=== PATIENT | male | born 1990 | race African-American/Black ===

== ENCOUNTER 2019-05-15 22:34 | Emergency (ER) | payer OTHER ==
--- NOTE | 2019-05-15 23:03 | ED Physician Documentation ---
History of Present Illness - Stated complaint Stated Complaint: ABD PX - Chief complaint Chief Complaint: Abd Pain - Additonal information Additional information: This is a 29-year-old male who denies past medical history who presents with 3 weeks of intermittent left lower quadrant abdominal discomfort. Patient states the pain has been coming and going, and at times it feels crampy. It radiates slightly towards his midline at times, but he does denies any right lower quadrant abdominal pain. No upper abdominal discomfort. 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 He denies any testicular or penile pain. No pain or burning on urination. No vomiting. He also states that earlier in the evening he had a slight amount of chest discomfort which was central, was not associated with any shortness of breath or cough or fever. It now is gone and he feels asymptomatic. Review of Systems Constitutional: denies: Fever Nose: denies: Rhinorrhea / runny nose Cardiac: denies: Chest pain / pressure Respiratory: denies: Dyspnea GI: reports: Abdominal Pain. denies: Vomiting : denies: Dysuria Skin: denies: Rash Neurologic: denies: Generalized weakness PD PAST MEDICAL HISTORY - Past Medical History Past Medical History: No Cardiovascular: None Respiratory: None Neuro: None Endocrine/Autoimmune: None GI: None : None HEENT: None Psych: None Musculoskeletal: None Derm: None - Past Surgical History Past Surgical History: No - Allergies Allergies/Adverse Reactions: Allergies Allergy/AdvReac Type Severity Reaction Status Date / Time No Known Drug Allergies Allergy Verified 05/15/19 22:40 - Social History Does the pt smoke?: No Smoking Status: Never smoker - Immunizations Immunizations are current?: Yes - POLST Patient has POLST: No PD ED PE NORMAL - Vitals Vital signs reviewed: Yes - General General: Alert and oriented X 3, No acute distress - HEENT HEENT: PERRL - Neck Neck: Supple, no meningeal sign - Cardiac Cardiac: RRR, No murmur - Respiratory Respiratory: Clear bilaterally - Abdomen Abdomen: Normal bowel sounds, Soft, Non distended, Other (Mild left lower quadrant tenderness to deep palpation, abdomen is otherwise nontender. There is no guarding. There is no tenderness with deep ablation of the right lower quadrant of the right upper quadrant. Negative Anderson sign.) - Derm Derm: Warm and dry - Extremities Extremities: No deformity - Neuro Neuro: Alert and oriented X 3 - Psych Psych: Normal mood, Normal affect Results - Vitals Vitals: Vital Signs - 24 hr 05/15/19 05/16/19 05/16/19 22:37 00:30 00:34 Temperature 37 C 36.7 C Heart Rate 90 80 Respiratory 17 16 20 Rate Blood Pressure 159/88 H 134/81 H O2 Saturation 100 98 Oxygen O2 Source Room air - EKG (time done) 23:33 Other comments: Other comments (Rate 83, rhythm sinus, there is no ST segment elevation or depression, no abnormal T wave inversions. There is an RSR prime in V1 and V2. QTc 426.) - Labs Labs: Laboratory Tests 05/15/19 05/15/19 05/16/19 22:50 22:50 00:00 WBC 6.6 RBC 5.15 Hgb 14.5 Hct 43.3 MCV 84.1 MCH 28.2 MCHC 33.5 RDW 12.3 Plt Count 258 MPV 10.8 Neut # (Auto) 3.7 Lymph # (Auto) 2.4 [place] # (Auto) 0.4 Eos # (Auto) 0.1 Baso # (Auto) 0.0 Absolute Nucleated RBC 0.00 Nucleated RBC % 0.0 Sodium 137 Potassium 3.5 Chloride 104 Carbon Dioxide 23 Anion Gap 10.0 BUN 9 Creatinine 0.8 Estimated GFR (MDRD) 140 Glucose 99 Calcium 9.1 Total Bilirubin 0.9 AST 17 ALT 19 Alkaline Phosphatase 61 Total Protein 7.7 Albumin 4.5 Globulin 3.2 Albumin/Globulin Ratio 1.4 Lipase 38 Urine Color YELLOW Urine Clarity CLEAR Urine pH 6.5 Ur Specific [place] 1.015 Urine Protein NEGATIVE Urine Glucose (UA) NEGATIVE Urine Ketones NEGATIVE Urine Occult Blood NEGATIVE Urine Nitrite NEGATIVE Urine Bilirubin NEGATIVE Urine Urobilinogen 1 (NORMAL) Ur Leukocyte Esterase NEGATIVE Ur Microscopic Review NOT INDICATED Urine Culture Comments NOT INDICATED PD MEDICAL DECISION MAKING - ED course Complexity details: considered differential (Diverticulitis, appendicitis, UTI, torsion, nephrolithiasis, biliary obstruction, constipation) ED course: On arrival patient is very well-appearing, vital signs are unremarkable. His abdomen is benign he has a very small amount of tenderness in the left lower quadrant abdomen is otherwise nontender and specifically no tenderness in the right lower quadrant. No testicular pain or signs of torsion. Labs are drawn and are unremarkable. His white blood cell count, red blood cell count, and abdominal panel are all within normal limits. His urine is negative for blood, signs of infection, or nitrates. I repeated abdominal exam and he continues to have a very benign abdomen. I discussed with him options of imaging versus careful observation, he is feeling well and would prefer observation. Given his reassuring labs and abdomen, I think this is very reasonable. Regarding his transient chest discomfort, this sounds very benign and was fleeting, he has no signs of PE, oxygen saturation is excellent, his lungs are c lear to auscultation bilaterally, his symptoms resolved completely, and his EKG is unremarkable, do not see signs of any acute cardiac or pulmonary emergency at this time. I reviewed return precautions with the patient, discussed primary care follow-up, patient was discharged home in very good condition. Departure - Departure Disposition: 01 Home, Self Care Clinical Impression: Abdominal pain Qualifiers: Abdominal location: left lower quadrant Qualified Code(s): R10.32 - Left lower quadrant pain Condition: Good Instructions: ED Abdominal Pain Unkn Cause Comments: Your labs and urine test were very reassuring today, I do not see any signs of an emergency cause of your abdominal pain. Please follow-up with your primary care provider on this discomfort, if you are having increasing pain, pain that shifts to the right lower quadrants, repeated episodes of vomiting, fever, or other concerning symptoms, return to the emergency department. Discharge Date/Time: 05/16/19 00:42
[2019-05-15 23:25] LABS: BASOPHILS % (AUTO) 0.3 %; EOSINOPHILS # (AUTO) 0.1 10^3/uL (0.0-0.7); EOSINOPHILS % (AUTO) 1.4 %; HGB - HEMOGLOBIN 14.5 g/dL (14.0-18.0); LYMPHOCYTES # (AUTO) 2.4 10^3/uL (1.5-3.5); LYMPHOCYTES % (AUTO) 35.8 %; MEAN CORPUSCULAR HEMOGLOBIN 28.2 pg (27.0-31.0); MEAN CORPUSCULAR HGB CONC 33.5 g/dL (32.0-36.0); MEAN CORPUSCULAR VOLUME 84.1 fL (80.0-94.0); MEAN PLATELET VOLUME 10.8 fL (7.4-11.4); MONOCYTES # (AUTO) 0.4 10^3/uL (0.0-1.0); MONOCYTES % (AUTO) 6.2 %; NEUTROPHILS # (AUTO) 3.7 10^3/uL (1.5-6.6); PLT - PLATELET COUNT 258 10^3/uL (130-450); RED BLOOD COUNT 5.15 10^6/uL (4.70-6.10); RED CELL DISTRIBUTION WIDTH 12.3 % (12.0-15.0); WHITE BLOOD COUNT 6.6 x10^3/uL (4.8-10.8)
[2019-05-15 23:35] LABS: ALBUMIN 4.5 g/dL (3.2-5.5); ALBUMIN/GLOBULIN RATIO 1.4 (1.0-2.2); BILIRUBIN,TOTAL 0.9 mg/dL (0.2-1.0); CALCIUM 9.1 mg/dL (8.5-10.3); CREATININE 0.8 mg/dL (0.6-1.2); TOTAL PROTEIN 7.7 g/dL (6.7-8.2)
[2019-05-16 00:06] LABS: BILIRUBIN,URINE NEGATIVE (NEGATIVE); GLUCOSE, URINE (UA) NEGATIVE (NEGATIVE); KETONES,URINE (UA) NEGATIVE (NEGATIVE); LEUKOCYTE ESTERASE, URINE NEGATIVE (NEGATIVE); NITRITE,URINE NEGATIVE (NEGATIVE); OCCULT BLOOD,URINE NEGATIVE (NEGATIVE); PH,URINE 6.5 PH (5.0-7.5); PROTEIN,URINE NEGATIVE (NEGATIVE); UROBILINOGEN,URINE 1 (NORMAL) E.U./dL (NORMAL)
[2019-05-16 00:07] LABS: CLARITY,URINE CLEAR (CLEAR)
[2019-05-16 00:35] VITALS: BP 134/81
== END 2019-05-16 00:42 | disposition home or self-care (01) ==
LOC: ED 22:34
DX: R10.32 Left lower quadrant pain (principal)
CPT/HCPCS: 36415; 80053; 81001; 81003; 83690; 85025; 87086; 93005; 99283; 99284

== ENCOUNTER 2019-08-20 14:25 | Emergency (ER) | payer OTHER ==
--- NOTE | 2019-08-20 15:11 | ED Physician Documentation ---
History of Present Illness - Stated complaint Stated Complaint: CONSTIPATION - Chief complaint Chief Complaint: Abd Pain - History obtained from History obtained from: Patient - History of Present Illness Timing: How many weeks ago (2) - Additonal information Additional information: 29-year-old male presents to the emergency department chief complaint of no bow el movement for 2 weeks. He denies any previous history of constipation. No history of previous abdominal surgery. He denies any opiate use. He has attempted Colace and a few doses of MiraLAX without success. He denies any nausea or vomiting and continues to eat. He occasionally passes gas. Review of Systems Constitutional: denies: Fever, Chills Respiratory: denies: Dyspnea, Cough GI: reports: Constipation. denies: Abdominal Pain, Abdominal Swelling, Nausea, Vomiting, Diarrhea, Hematemesis, Bloody / black stool : denies: Dysuria, Frequency Skin: denies: Rash, Lesions Musculoskeletal: denies: Neck pain, Back pain PD PAST MEDICAL HISTORY - Past Medical History Cardiovascular: None Respiratory: None Neuro: None Endocrine/Autoimmune: None GI: None : None HEENT: None Psych: None Musculoskeletal: None Derm: None - Past Surgical History Past Surgical History: No - Present Medications Home Medications: Ambulatory Orders Medication Instructions Recorded Confirmed Polyethylene Glycol 3350 [Miralax] 17 gm PO BID #1 bottle 08/20/19 - Allergies Allergies/Adverse Reactions: Allergies Allergy/AdvReac Type Severity Reaction Status Date / Time No Known Drug Allergies Allergy Verified 08/20/19 14:32 - Social History Does the pt smoke?: No Smoking Status: Never smoker - Immunizations Immunizations are current?: Yes - POLST Patient has POLST: No PD ED PE NORMAL - General General: Alert and oriented X 3, No acute distress, Well developed/nourished - Cardiac Cardiac: RRR, No murmur - Respiratory Respiratory: No respiratory distress - Abdomen Abdomen: Normal bowel sounds, Soft, Non tender - Rectal Rectal: Other (thrombosed external hemorrhoid) - Back Back: No CVA TTP - Extremities Extremities: No deformity, No tenderness to palpate - Neuro Neuro: Alert and oriented X 3, chemist physical 2-12 intact, No motor deficit, No sensory deficit Results - Vitals Vitals: Vital Signs - 24 hr 08/20/19 08/20/19 14:32 16:35 Temperature 36.5 C Heart Rate 80 69 Respiratory 16 18 Rate Blood Pressure 175/89 H 144/79 H O2 Saturation 99 100 Oxygen O2 Source Room air - Rads (name of study) abd xray Radiology: Final report received (Moderate fecal load in the a sending and descending) PD MEDICAL DECISION MAKING - ED course Complexity details: re-evaluated patient, d/w patient ED course: 29-year-old male presents to the emergency department with 2 weeks of constipation. He reports no bowel movement for 2 weeks. - Flat plate abdominal x-ray reveals moderate colonic stool loading in the a sending and descending colon. However patient has no vomiting or fevers. He is passing gas. He does not have clinical evidence of a bowel obstruction. - Patient was given a fleets enema in the emergency department and after that he was able to pass some brown liquid stool. I have recommended that he go home and take MiraLAX twice daily until he has 3-4 watery bowel movements. He is to return to the emergency department for fevers suddenly severe worsening abdominal pain or if the MiraLAX does not produce adequate bowel movement. Departure - Departure Disposition: 01 Home, Self Care Clinical Impression: Constipation Qualifiers: Constipation type: unspecified constipation type Qualified Code(s): K59.00 - Constipation, unspecified Condition: Stable Instructions: Constipation Prescriptions: Polyethylene Glycol 3350 [Miralax] 17 gm PO BID #1 bottle Comments: Nathanael the x-ray of your abdomen shows a moderate amount of stool in both your a sending and descending colon. However you do not have any clinical signs of a bowel obstruction. Please take the MiraLAX as prescribed twice a day until you have 3-4 watery bowel movements. Please eat a mostly clear liquid diet until you do have an adequate bowel movement. Please [place]. Return to the emergency department for fevers, suddenly severe abdominal pain, or if the MiraLAX does not produce adequate bowel movement.
[2019-08-20] MEDS ORDERED: MINERAL OIL ENEMA 133 ML BOTTLE RC STA (15:38)
--- NOTE | 2019-08-20 15:48 | XRAY Report ---
PROCEDURE: Abdomen 1 View X-Ray INDICATIONS: no BM for 2 weeks TECHNIQUE: 1 view of the abdomen were acquired. COMPARISON: None. FINDINGS: Surgical changes and devices: None. Bowel: No pneumoperitoneum. The bowel gas pattern is nonobstructive. Moderate fecal burden noted i n the ascending colon and distal descending colon. Soft tissues: No masses; visualized solid organ contours appear normal in size. No suspicious abdom inal calcifications. Bones: No suspicious bony abnormalities. IMPRESSION: Abdomen without acute radiographic abnormalities. Moderate fecal load identified in the ascending colon and distal descending colon. Reviewed by: Aris Caballero MD on 08/20/2019 3:47 PM PDT Approved by: Aris Caballero MD on 08/20/2019 3:47 PM PDT Station ID: [id number]
[2019-08-20 17:07] VITALS: BP 129/98
== END 2019-08-20 17:06 | disposition home or self-care (01) ==
LOC: ED 14:25
DX: K59.00 Constipation, unspecified (principal); K64.5 Perianal venous thrombosis
CPT/HCPCS: 74018; 99283; A9270